=== PATIENT | male | born 1990 | race Caucasian/White ===

== ENCOUNTER 2021-11-26 15:58 | Emergency (ER) | payer OTHER, SELFPAY ==
[2021-11-26 16:06] VITALS: BP 149/74; PULSE 69; RESP 16; TEMP 36.2; O2SAT 99
--- NOTE | 2021-11-26 16:15 | DI.RAD_ITS ---
Exam(s) XR THUMB LT EXAM: XR THUMB LT CLINICAL HISTORY: fall- pain to mcp joint. TECHNIQUE: 2D digital imaging was performed. COMPARISON: No exams were available for comparison FINDINGS: Although there are no obvious fractures, the there is subtle density in the soft tissues adjacent to the medial aspect of the distal thumb metacarpal. Correlation with any history consistent with gamek eeper's thumb (ulnar collateral ligament injury) is recommended Called by myself to ER provider 11/26/2021 5:10 p.m. IMPRESSION: DATA REPOSITORY: RADIATION DOSE DELIVERED:
--- NOTE | 2021-11-26 16:29 | ED.GENADUL_ITS ---
Discharge Plan Disposition Patient Disposition: HOME Condition: Stable Discharge Details Clinical Impression: Sprain of ulnar collateral ligament of interphalangeal joint of thumb Primary Care Provider: Colt Dao ED Provider: Yfn Gibbs Home Meds and New Rx's Prescriptions: No Action No Known Home Meds RF: 0 Discharge Instructions Instructions: Skier's Thumb (ED) Additional Instructions: It is important that you keep splint on until you see Ortho/hand specialists. For pain please use over the counter pain medications such as Motrin as discussed. Please follow up with Ortho Sepcialist in the next 7 days for reassessment. Stand Alone Forms: Work Release Discharge Data Discharge Date/Time-TO BE ENTERED AT DEPARTURE: 11/26/21 18:15 Medical Decision Making Patient presenting to the emergency department for chief complaint of left thumb injury. 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 His hand was around another person's arm causing the thumb to flex backwards during the fall. Patient denies any other injury or trauma. Physical exam shows significant swelling and ecchymosis throughout the thumb with tenderness to the MCP and some laxity noted. Speaking to the radiologist he states abnormality noted on the ulnar aspect concerning for ulnar collateral ligament injury. No signs of acute fracture or dislocation. This is consistent with patient's injury pattern. Patient requesting to follow-up with local orthopedics patient placed in thumb spica and instructed on importance of following up preferably within the next week. After discussion of diagnosis and plan of care patient has no further needs, questions, or concerns and states clear understanding to return to the emergency department for any worsening symptoms. HPI General Mode of arrival: ambulatory . Date/Time Provider Initiated Documentation: 11/26/21 16:14 . Limitations to Documentation: no limitations . Information obtained by: patient . History of Present Illness 31 year old M presents to the emergency department with the chief complaint of Left thumb injury, described as moderate, with intensity rated at 6. Quality is described as aching, and is localized to the left and upper extremity. Patient reports no radiation. Patient started experiencing this day(s) (1) and it has been constant. Immobilization improves symptom(s), Movement worsens symptoms . Patient notes no other symptoms.. Patient did receive the following treatments prior to arrival, NSAID Related Data Home Medications Medication Instructions Recorded Confirmed Unknown [No Known Home Meds] 11/26/21 11/26/21 Allergies Allergy/AdvReac Type Severity Reaction Status Date / Time seasonal Allergy Uncoded 11/26/21 16:11 General Stated Complaint: Orthopedic LATANYA: 4 Review of Systems ENT Ears, Nose, Mouth, and Throat: Denies nasal trauma and Denies neck pain Cardiovascular Cardiovascular: Denies syncope and Denies dyspnea Respiratory Respiratory: Denies dyspnea Musculoskeletal Musculoskeletal: Reports as per HPI, Denies neck pain, Denies numbness and Denies tingling Integumentary/Breasts Skin/Breast: Denies rash, Denies sores and Denies wounds Neurologic Neurologic: Denies syncope, Denies numbness and Denies tingling PFSH All Active Problems (Updated 11/26/21 @ 17:21 by Yfn Gibbs NP) Sprain of ulnar collateral ligament of interphalangeal joint of thumb (Acute) Social History Smoking/Tobacco Use Status: Never Smoking risk assessment performed?: Yes Drug use: Daily Substance use type: marijuana Exam Const General: cooperative and no acute distress Orientation: alert, awake and oriented x3 Resp Effort & Inspection: normal respiratory effort and able to speak in complete sentences Cardio Rate: regular rate Rhythm: regular rhythm Pulses: radial pulses present Extrem General: normal exam except as noted Left upper extremity: hand Details: neuromotor exam normal, neurosensory exam normal, tendon exam abnormal Radial collateral ligament- thumb mcp , tenderness Location: of the thumb Location: at the MCP joint, swelling Location: of the thumb and ecchymosis Location: of the thumb Course Vital Signs Vital signs: Vital Signs Temperature 36.2 C L 11/26/21 16:06 Pulse 69 11/26/21 16:06 Respiratory Rate 16 11/26/21 16:06 Blood Pressure 149/74 H 11/26/21 16:06 Pulse Oximetry 99 11/26/21 16:06 Temperature 36.2 C L 11/26/21 16:06 Temperature Source Skin 11/26/21 16:06 Pulse 69 11/26/21 16:06 Respiratory Rate 16 11/26/21 16:06 Respiratory Effort 11/26/21 16:06 Blood Pressure 149/74 H 11/26/21 16:06 Blood Pressure Position Sitting 11/26/21 16:06 Pulse Oximetry 99 11/26/21 16:06 Oxygen Delivery Method Room Air 11/26/21 16:06 Oxygen Flow Rate 0 11/26/21 16:06 Pain Level 6 11/26/21 16:12
--- NOTE | 2021-11-26 17:15 | DI.VRAD_ITS ---
PROCEDURE INFORMATION: Exam: XR Left Finger(s) Exam date and time: 11/26/2021 4:22 PM Age: 31 years old Clinical indication: Other: Fall- pain to mcp joint; Patient HX: Fell at work; Additional info: Oblique view of thumb under pa view as hand position renders thumb into obliquity. Oblique view is ap TECHNIQUE: Imaging protocol: XR Left fingers. Views: Minimum 2 views. COMPARISON: No relevant prior studies available. FINDINGS: Bones/joints: There is no evidence of acute fracture.There is no evidence of malalignment or dislocation. Soft tissues: Normal. IMPRESSION: There is no evidence of acute fracture.There is no evidence of malalignment or dislocation. Dictated and Authenticated by: Dacia Bazan MD. Ordering:LINNETTE Coulter MD
== END 2021-11-26 18:15 | disposition home or self-care (01) ==
PROVIDERS: Emergency Provider Nurse Practitioner Family; PCP Family Medicine
DX: S63.622A Sprain of interphalangeal joint of left thumb, initial encounter (principal); X50.1XXA Overexertion from prolonged static or awkward postures, initial encounter; Y99.0 Civilian activity done for income or pay
CPT/HCPCS: 29125; 99283; 73140